=== PATIENT | male | born 1975 | race African-American/Black ===

== ENCOUNTER 2017-12-22 12:07 | Emergency (ER) | payer MEDICAID ==
[~2017-12-22] VITALS: Ht 177.8 cm; Wt 75.0 kg
[2017-12-22 12:10] VITALS: BP 148/92
== END 2017-12-22 14:20 | disposition left against medical advice (07) ==
LOC: ER 13:01
DX: R10.13 Epigastric pain (principal)

== ENCOUNTER 2018-02-09 21:22 | Emergency (ER) | payer MEDICAID ==
[~2018-02-09] VITALS: Ht 190.5 cm; Wt 91.0 kg
[2018-02-09] MEDS ORDERED: LORAZEPAM 2MG/ML CPJ IM STA (22:22)
[2018-02-09] MEDS ORDERED: HALOPERIDOL LACTATE 5MG/ML VIAL IM STA (22:22)
[2018-02-09] MEDS ORDERED: SODIUM CHLORIDE 0.9% 1,000 ML IV ONE (22:22)
[2018-02-09 23:40] LABS: BASOPHILS % 0.6 % (0.0-2.0); EOSINOPHILS % 1.4 % (0.0-5.0); HEMATOCRIT. 45.3 % (42.0-52.0); LYMPHOCYTES % 51.6 % (20.0-50.0); MEAN CORPUSCULAR HEMOGLOBIN 32.1 pg (28.0-32.0); MEAN CORPUSCULAR VOLUME 96.5 fL (80.0-94.0); MEAN PLATELET VOLUME 7.3 fl (7.4-10.4); MONOCYTES % 7.9 % (2.0-8.0); NEUTROPHILS % 38.5 % (40.0-76.0); PLATELET 283 x1000/uL (130-400); RED BLOOD CELL COUNT 4.69 mill/uL (4.7-6.1); RED CELL DISTRIBUTION WIDTH 15.2 % (11.6-14.6)
[2018-02-09 23:46] LABS: CHLORIDE 108 mEq/L (98-107)
[2018-02-09 23:56] LABS: ETHANOL BLOOD 267 mg/dL
[2018-02-10 05:09] LABS: *AMPHETAMINES SCREEN URINE NEGATIVE (NEGATIVE); *BARBITURATES SCREEN URINE NEGATIVE (NEGATIVE); *BENZODIAZEPINES SCREEN URINE NEGATIVE (NEGATIVE); *COCAINE SCREEN URINE NEGATIVE (NEGATIVE)
[2018-02-10 05:10] LABS: CANNABINOID URINE SCREEN NEGATIVE (NEGATIVE); METHADONE URINE SCREEN NEGATIVE (NEGATIVE); OPIATES URINE SCREEN NEGATIVE (NEGATIVE); PHENCYCLIDINE URINE SCREEN PRESUMTIVE POSITIVE (NEGATIVE)
[2018-02-10 09:00] VITALS: BP 125/79
== END 2018-02-12 09:40 | disposition home or self-care (01) ==
LOC: ER 21:22
DX: F23 Brief psychotic disorder (principal); F10.229 Alcohol dependence with intoxication, unspecified; E87.8 Other disorders of electrolyte and fluid balance, not elsewhere classified; F16.10 Hallucinogen abuse, uncomplicated; J45.909 Unspecified asthma, uncomplicated; Y90.8 Blood alcohol level of 240 mg/100 ml or more
CPT/HCPCS: 36415; 70450; 71045; 80053; 80305; 85025; 96360; 96361; 96372; 99285; G0482; J1630; J2060; J7030; Z7610; A4315